=== PATIENT | female | born 1985 | race African-American/Black ===

== ENCOUNTER 2017-04-23 22:52 | Emergency (ER) | payer OTHER ==
[2017-04-23 23:15] VITALS: BP 147/77; PULSE 64; TEMP 98.2; BMI 49.9
--- NOTE | 2017-04-24 00:18 | PDOC ---
History of Present Illness - General History Source: Patient, Old Records Exam Limitations: No Limitations - History of Present Illness Initial Comments: 04/24/17 01:19 The patient is a 32 year old female who presents requesting STD testing after having intercourse with a new partner and the condom broke. Patient denies any respiratory symptoms. <Brad Cronin - Last Filed: 04/24/17 01:18> <Norma Chance - Last Filed: 04/27/17 05:31> - General Chief Complaint: Respiratory Stated Complaint: FATIGUE Time Seen by Provider: 04/24/17 00:18 Past History <Brad Cronin - Last Filed: 04/24/17 01:18> - Past Medical History Diabetes: No - Surgical History Abdominal Surgery: Yes - Suicide/Smoking/Psychosocial Hx Smoking Status: No Smoking History: Never smoked Number of Cigarettes Smoked Daily: 0 Hx Alcohol Use: No Drug/Substance Use Hx: No Substance Use Type: None <Norma Cahnce - Last Filed: 04/27/17 05:31> - Past Medical History Allergies/Adverse Reactions: Allergies Allergy/AdvReac Type Severity Reaction Status Date / Time codeine Allergy Verified 04/23/17 23:15 ibuprofen Allergy Verified 04/23/17 23:15 Home Medications: Ambulatory Orders Ondansetron [Zofran Odt -] 4 mg SL TID #9 od.tablet 07/01/15 Pantoprazole Sodium [Protonix] 40 mg PO ONCE #14 tablet. 07/01/15 Ranitidine [Zantac -] 150 mg PO DAILY #14 tablet 07/01/15 Emtricitabine/Tenofovir [Truvada] 1 tab PO DAILY #30 tablet 04/24/17 Raltegravir [Isentress -] 400 mg PO BID #60 tab 04/24/17 Review of Systems - Review of Systems Able to Perform ROS?: Yes Comments:: 04/24/17 01:19 GENERAL/CONSTITUTIONAL: No fever or chills. No weakness. HEAD, EYES, EARS, NOSE AND THROAT: No change in vision. No ear pain or discharge. No sore throat. GASTROINTESTINAL: No nausea, vomiting, diarrhea or constipation. GENITOURINARY: No dysuria, frequency, or change in urination. CARDIOVASCULAR: No chest pain or shortness of breath. RESPIRATORY: No cough, wheezing, or hemoptysis. MUSCULOSKELETAL: No joint or muscle swelling or pain. No neck or back pain. SKIN: No rash NEUROLOGIC: No headache, vertigo, loss of consciousness, or change in strength/ sensation. ENDOCRINE: No increased thirst. No abnormal weight change. HEMATOLOGIC/LYMPHATIC: No anemia, easy bleeding, or history of blood clots. ALLERGIC/IMMUNOLOGIC: No hives or skin allergy. <Brad Cronin - Last Filed: 04/24/17 01:18> *Physical Exam - Vital Signs Last Vital Signs Temp Pulse Resp BP Pulse Ox 98.2 F 64 18 147/77 99 04/23/17 23:12 04/23/17 23:12 04/23/17 23:12 04/23/17 23:12 04/23/17 23:12 - Physical Exam Comments: 04/24/17 01:19 GENERAL: Awake, alert, and fully oriented, in no acute distress HEAD: No signs of trauma EYES: PERRLA, EOMI, sclera anicteric, conjunctiva clear ENT: Auricles normal inspection, hearing grossly normal, nares patent, oropharynx clear without exudates. Moist mucosa NECK: Normal ROM, supple, no lymphadenopathy, JVD, or masses LUNGS: Breath sounds equal, clear to auscultation bilaterally. No wheezes, and no crackles HEART: Regular rate and rhythm, normal S1 and S2, no murmurs, rubs or gallops ABDOMEN: Soft, nontender, normoactive bowel sounds. No guarding, no rebound. No masses EXTREMITIES: Normal range of motion, no edema. No clubbing or cyanosis. No cords, erythema, or tenderness NEUROLOGICAL: Cranial nerves II through XII grossly intact. Normal speech, normal gait SKIN: Warm, Dry, normal turgor, no rashes or lesions noted. <Brad Cronin - Last Filed: 04/24/17 01:18> - Vital Signs Last Vital Signs Temp Pulse Resp BP Pulse Ox 98.2 F 64 18 147/77 99 04/23/17 23:12 04/23/17 23:12 04/23/17 23:12 04/23/17 23:12 04/23/17 23:12 <Norma Chance - Last Filed: 04/27/17 05:31> ED Treatment Course - ADDITIONAL ORDERS Additional order review: Laboratory Results 04/24/17 00:25 Urine HCG, Qual Negative <Brad Cronin - Last Filed: 04/24/17 01:18> Medical Decision Making - Medical Decision Making 04/24/17 01:20 Urinary negative Patient started on PEP in ED Stable for discharge <Brad Cronin - Last Filed: 04/24/17 01:18> - Medical Decision Making Clarification to scribe chart- Patient's complaint on initial presentation was fatigue and respiratory complaint, however, she states she has no respiratory complaints. She presented for PEP, but was not comfortable stating this in triage. <Norma Chance - Last Filed: 04/27/17 05:31> *DC/Admit/Observation/Transfer - Attestations Scribe Attestion: 04/24/17 01:21 Documentation prepared by Brad Cronin, acting as medical apparatus model maker for Norma Chance MD. <Brad Cronin - Last Filed: 04/24/17 01:18> - Discharge Dispostion Admit: No <Norma Chance - Last Filed: 04/27/17 05:31> Diagnosis at time of Disposition: Encounter for screening examination for sexually transmitted disease - Discharge Dispostion Disposition: HOME Condition at time of disposition: Stable - Prescriptions Prescriptions: Raltegravir [Isentress -] 400 mg PO BID #60 tab Emtricitabine/Tenofovir [Truvada] 1 tab PO DAILY #30 tablet - Referrals Referrals: Suzanne Ho [Primary Care Provider] - - Patient Instructions Printed Discharge Instructions: DI for Accidental Exposure to Body Fluids
[2017-04-24] MEDS ORDERED: AZITHROMYCIN 1 GM PACKET PO ONE (00:33)
[2017-04-24] MEDS ORDERED: LEVONORGESTREL 1.5 MG TABLET (PLAN B ONE-STEP) PO ×2 (00:54→01:41)
[2017-04-24] MEDS ORDERED: RALTEGRAVIR POTASSIUM 400 MG TAB PO ONE (00:57)
[2017-04-24] MEDS ORDERED: EMTRICITABINE 200MG/TENOFOVIR 300MG PO ONE (00:57)
[2017-04-24] MEDS ORDERED: AZITHROMYCIN 250 MG TABLET ONE (01:41)
[2017-04-24] MEDS ORDERED: LIDOCAINE HCL/PF 1% SDV 5ML VIAL ONE (01:42)
[2017-04-24 02:40] LABS: HIV 1 & 2 AB NEGATIVE; HIV 1 AGp24 NEGATIVE
== END 2017-04-24 02:16 | disposition home or self-care (01) ==
LOC: JER 22:52
DX: Z11.3 Encounter for screening for infections with a predominantly sexual mode of transmission (principal)
CPT/HCPCS: 36415; 84703; 87389; 87491; 87591; 99281-25

== ENCOUNTER 2017-05-24 13:46 | Emergency (ER) | payer OTHER ==
[2017-05-24 13:57] VITALS: BP 119/73; PULSE 70; TEMP 98.3; BMI 55.3
--- NOTE | 2017-05-24 14:15 | PDOC ---
History of Present Illness - General Chief Complaint: Pain Stated Complaint: STD TESTING/R/O UTI Time Seen by Provider: 05/24/17 14:15 History Source: Patient Exam Limitations: No Limitations - History of Present Illness Initial Comments: 05/24/17 14:25 Patient is a 32-year-old female with past medical history of unprotected sexual encounters, who presents to the emergency department today requesting STD testing. Patient states that she had a one night stand approximate 4 nights ago when the condom broke. She is concerned she might have an STD. She is requesting GC chlamydia testing at this time, however she refuses HIV testing as she does not want to wait for the results. Denies fevers, chills, nausea, vomiting, diarrhea, discharge, itching, lesions, weight loss, fatigue. Past History - Travel Traveled outside of the country in the last 30 days: No Close contact w/someone who was outside of country & ill: No - Past Medical History Allergies/Adverse Reactions: Allergies Allergy/AdvReac Type Severity Reaction Status Date / Time codeine Allergy Verified 05/24/17 13:56 ibuprofen Allergy Verified 05/24/17 13:56 Home Medications: Ambulatory Orders Ondansetron [Zofran Odt -] 4 mg SL TID #9 od.tablet 07/01/15 Pantoprazole Sodium [Protonix] 40 mg PO ONCE #14 tablet.dr 07/01/15 Ranitidine [Zantac -] 150 mg PO DAILY #14 tablet 07/01/15 Emtricitabine/Tenofovir [Truvada] 1 tab PO DAILY #30 tablet 04/24/17 Raltegravir [Isentress -] 400 mg PO BID #60 tab 04/24/17 Diabetes: No Other medical history: obesity - Surgical History Abdominal Surgery: Yes - Suicide/Smoking/Psychosocial Hx Smoking Status: No Smoking History: Never smoked Number of Cigarettes Smoked Daily: 0 Information on smoking cessation initiated: No Hx Alcohol Use: No Drug/Substance Use Hx: No Substance Use Type: None Review of Systems - Review of Systems Able to Perform ROS?: Yes Comments:: 05/24/17 14:30 CONSTITUTIONAL: Absent: fever, chills, diaphoresis, generalized weakness, malaise, loss of appetite HEENT: Absent: rhinorrhea, nasal congestion, throat pain, throat swelling, difficulty swallowing, mouth swelling, ear pain, eye pain, visual Changes CARDIOVASCULAR: Absent: chest pain, loss of consciousness, palpitations, irregular heart rate, peripheral edema RESPIRATORY: Absent: cough, shortness of breath, dyspnea with exertion, orthopnea, wheezing, stridor, hemoptysis GASTROINTESTINAL: Absent: abdominal pain, abdominal distension, nausea, vomiting, diarrhea, constipation, melena, hematochezia GENITOURINARY: Absent: dysuria, frequency, urgency, hesitancy, hematuria, flank pain, genital pain MUSCULOSKELETAL: Absent: myalgia, arthralgia, joint swelling SKIN: Absent: rash, itching, pallor HEMATOLOGIC/IMMUNOLOGIC: Absent: easy bleeding, easy bruising, lymphadenopathy, frequent infections ENDOCRINE: Absent: unexplained weight gain, unexplained weight loss, heat intolerance, cold intolerance NEUROLOGIC: Absent: headache, focal weakness or paresthesias, dizziness, unsteady gait, seizure, mental status changes, bladder or bowel incontinence PSYCHIATRIC: Absent: anxiety, depression, suicidal or homicidal ideation, hallucinations. Is the patient limited Armenian proficient: No *Physical Exam - Vital Signs Last Vital Signs Temp Pulse Resp BP Pulse Ox 98.3 F 70 18 119/73 100 05/24/17 13:53 05/24/17 13:53 05/24/17 13:53 05/24/17 13:53 05/24/17 13:53 - Physical Exam Comments: 05/24/17 14:40 GENERAL: Well developed, well nourished. Awake and alert. No acute distress. NECK: Supple. Full ROM. No JVD. Carotid pulses 2+ and symmetric, without bruits. No thyromegaly. No lymphadenopathy. CARDIOVASCULAR: Regular rate and rhythm. No murmurs, rubs, or gallops. Distal pulses are 2+ and symmetric. PULMONARY: No evidence of respiratory distress. Lungs clear to auscultation bilaterally. No wheezing, rales or rhonchi. ABDOMINAL: Soft. Non-tender. Non-distended. No rebound or guarding. No organomegaly. Normoactive bowel sounds. SKIN: Warm and dry. Normal capillary refill. No rashes. No jaundice. NEUROLOGICAL: Alert, awake, appropriate. Cranial nerves 2-12 intact. No deficits to light touch and temperature in face, upper extremities and lower extremities. No motor deficits in the in face, upper extremities and lower extremities. Normoreflexic in the upper and lower extremities. Normal speech. Toes are down- going bilaterally. Gait is normal without ataxia. : Exam deferred as pt did not want pelvic exam because it is "uncomfortable". PSYCHIATRIC: Cooperative. Good eye contact. Appropriate mood and affect. Medical Decision Making - Medical Decision Making 05/24/17 14:45 Patient is a 32-year-old female with past medical history of risky sexual encounters, who presents to the emergency department looking for STD testing after her condom broke with a new partner 4 days ago. Patient is requesting antibiotics at this time. She is also concerned about HIV and curious that prophylaxis. Explained the side effects of prophylaxis including weakness, dizziness, nausea and vomiting. Patient decides that she does not want take the medication. Also reviewed the patient's chart. She was in our emergency department approximately 1 month ago where she had HIV testing and it was negative at the time. She is instructed to follow-up in 2 months with the [facility], or [facility] to have repeat HIV testing. 1.UA, UC, U , GC/Chlamydia amplification. 2. Rocephin and azithromycin. 05/24/17 15:39 UA and urine are negative at this time. We'll discharge home. *DC/Admit/Observation/Transfer Diagnosis at time of Disposition: Encounter for screening examination for sexually transmitted disease - Discharge Dispostion Disposition: HOME Condition at time of disposition: Good Admit: No - Referrals Referrals: Ginette Ball MD [Staff Physician] - - Patient Instructions Printed Discharge Instructions: Facts About Sexually Transmitted Infections Additional Instructions: You were treated for suspected gonorrhea and chlamydia today. You did not want HIV testing today. Your HIV testing done on 04/24/17 was negative. 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 Use condoms when having intercourse. Your urine as negative for infection and you are not currently . Return to the ED if you have foul smelling discharge, itching, pain with intercourse, weakness, fatigue, weight loss, or any changes in your symptoms
[2017-05-24 14:36] LABS: URINE APPEARANCE SLCLOUDY; URINE BILIRUBIN NEGATIVE (NEGATIVE); URINE BLOOD NEGATIVE (NEGATIVE); URINE COLOR YELLOW; URINE GLUCOSE (UA) NEGATIVE (NEGATIVE); URINE KETONE TRACE (NEGATIVE); URINE NITRITE NEGATIVE (NEGATIVE); URINE PROTEIN NEGATIVE (NEGATIVE)
[2017-05-24] MEDS ORDERED: AZITHROMYCIN 250 MG TABLET PO ONE (14:50)
[2017-05-24] MEDS ORDERED: AZITHROMYCIN 250 MG TABLET ONE (14:57)
[2017-05-24 17:34] LABS: URINE LEUK ESTERASE Negative (NEGATIVE)
== END 2017-05-24 15:23 | disposition home or self-care (01) ==
LOC: JERFT 13:46
DX: Z11.3 Encounter for screening for infections with a predominantly sexual mode of transmission (principal); E66.9 Obesity, unspecified; Z68.43 Body mass index [BMI] 50.0-59.9, adult
CPT/HCPCS: 36415; 81003; 84703; 87086; 87491; 87591; 96372; 99281-25

== ENCOUNTER 2017-10-18 09:14 | Emergency (ER) | payer OTHER ==
[2017-10-18 09:20] VITALS: BP 113/63; PULSE 59; TEMP 97.8; BMI 54.1
[2017-10-18] MEDS ORDERED: ACETAMINOPHEN 500 MG TABLET (FP) PO ONE (11:24)
[2017-10-18] MEDS ORDERED: ACETAMINOPHEN 500 MG TABLET (FP) ONE (11:29)
--- NOTE | 2017-10-18 11:30 | PDOC ---
History of Present Illness - General Chief Complaint: Back Pain Stated Complaint: PAIN/ LT HIP, BACK Time Seen by Provider: 10/18/17 11:05 History Source: Patient Exam Limitations: No Limitations - History of Present Illness Initial Comments: 10/18/17 11:27 This is a 32-year-old obese woman without significant past medical history who presents to emergency department with 4 days of fatigue and lower back pain. Patient states the back pain started while at rest and is worse on the left side radiating to the left hip. Patient has not tried taking any OTC medications as she feels she may be . Patient states her last menstrual period was September 09 and reports having regular menses every 28 days. Patient had a negative home test. Patient denies any dysuria, hematuria, incontinence of bladder or bowel, vaginal bleeding or discharge, rectal bleeding , abdominal pain, fevers, chills, nausea or vomiting. Past History - Past Medical History Allergies/Adverse Reactions: Allergies Allergy/AdvReac Type Severity Reaction Status Date / Time codeine Allergy Verified 10/18/17 09:20 ibuprofen Allergy Verified 10/18/17 09:20 Home Medications: Ambulatory Orders Ondansetron [Zofran Odt -] 4 mg SL TID #9 od.tablet 07/01/15 Pantoprazole Sodium [Protonix] 40 mg PO ONCE #14 tablet. 07/01/15 Ranitidine [Zantac -] 150 mg PO DAILY #14 tablet 07/01/15 Emtricitabine/Tenofovir [Truvada] 1 tab PO DAILY #30 tablet 04/24/17 Raltegravir [Isentress -] 400 mg PO BID #60 tab 04/24/17 Methocarbamol [Robaxin -] 750 mg PO Q8H PRN #21 tablet MDD 3 10/18/17 COPD: No Diabetes: No Other medical history: obese - Surgical History Abdominal Surgery: Yes - Suicide/Smoking/Psychosocial Hx Smoking Status: No Smoking History: Never smoked Number of Cigarettes Smoked Daily: 0 Information on smoking cessation initiated: No Hx Alcohol Use: No Drug/Substance Use Hx: No Substance Use Type: None *Physical Exam - Vital Signs Last Vital Signs Temp Pulse Resp BP Pulse Ox 97.8 F 59 L 19 113/63 98 10/18/17 09:18 10/18/17 09:18 10/18/17 09:18 10/18/17 09:18 10/18/17 09:18 - Physical Exam General Appearance: Yes: Appropriately Dressed. No: Apparent Distress HEENT: positive: Normal ENT Inspection Neck: positive: Trachea midline, Supple Respiratory/Chest: positive: Lungs Clear, Normal Breath Sounds. negative: Respiratory Distress, Accessory Muscle Use Cardiovascular: positive: Regular Rhythm, Regular Rate, S1, S2. negative: Edema , Murmur Gastrointestinal/Abdominal: positive: Normal Bowel Sounds, Soft, Other (obese abdomen). negative: Tender Musculoskeletal: positive: Normal Inspection. negative: CVA Tenderness, Decreased Range of Motion, Muscle Spasm, Vertebral Tenderness Extremity: positive: Normal Inspection, Normal Range of Motion Integumentary: positive: Normal Color, Dry, Warm Neurologic: positive: Alert, Normal Response, Motor Strength 5/5 Medical Decision Making - Medical Decision Making 10/18/17 11:30 A/P: 32-year-old woman without medical history with 4 days of fatigue and left lower back pain. No vertebral tenderness palpated. No deformities, step offs or crepitus appreciated upon palpation. No CVA tenderness elicited. No muscle spasms appreciated. Abdomen soft nontender nondistended. Full sensation to medial and lateral lower extremities bilaterally. No footdrop noted. Early versus UTI versus kidney stone Urine testing, urinalysis, Tylenol Reassess 10/18/17 12:40 Patient with improvement in pain after taking Tylenol. Urinalysis is negative urine test is negative. Likely lower back strain from obesity. Diet and lifestyle modifications discussed with patient who understands that losing weight may help prevent back pain in the future. Patient instructed to take Tylenol and robaxin for continued pain with strict return precautions. *DC/Admit/Observation/Transfer Diagnosis at time of Disposition: Lower back pain Qualifiers: Chronicity: acute Back pain laterality: left Sciatica presence: without sciatica Qualified Code(s): M54.5 - Low back pain - Discharge Dispostion Disposition: HOME Condition at time of disposition: Stable Admit: No - Prescriptions Prescriptions: Methocarbamol [Robaxin -] 750 mg PO Q8H PRN #21 tablet MDD 3 PRN Reason: Back Pain - Referrals Referrals: Norma Bills MD [Primary Care Provider] - - Patient Instructions Printed Discharge Instructions: DI for Low Back Pain Additional Instructions: Take Tylenol as needed for pain. Follow manufacturers instructions for appropriate dosage. Try not to walk or bear weight as much as possible for the next 3 days. Warm moist heat applied to your back may help alleviate pain. Return to emergency department for discoloration of the foot, numbness or tingling to the foot, worsening pain, or any other concerns. Thank you very much for choosing us to provide your emergent healthcare needs. - Post Discharge Activity
[2017-10-18 11:40] LABS: URINE APPEARANCE CLEAR; URINE BILIRUBIN NEGATIVE (NEGATIVE); URINE BLOOD NEGATIVE (NEGATIVE); URINE COLOR YELLOW; URINE GLUCOSE (UA) NEGATIVE (NEGATIVE); URINE KETONE NEGATIVE (NEGATIVE); URINE LEUK ESTERASE NEGATIVE (NEGATIVE); URINE NITRITE NEGATIVE (NEGATIVE); URINE PROTEIN NEGATIVE (NEGATIVE); URINE UROBILINOGEN NEGATIVE mg/dL (0.2-1.0)
== END 2017-10-18 12:48 | disposition home or self-care (01) ==
LOC: JERFT 09:14
DX: M54.5 Low back pain (principal); E66.9 Obesity, unspecified; Z68.43 Body mass index [BMI] 50.0-59.9, adult
CPT/HCPCS: 81003; 84703; 99281-25

== ENCOUNTER 2017-10-22 22:13 | Emergency (ER) | payer OTHER ==
[2017-10-22 22:21] VITALS: BP 126/65; PULSE 97; TEMP 98.4; BMI 47.4
[2017-10-22] MEDS ORDERED: ACETAMINOPHEN 500 MG TABLET (FP) PO ONE ×2 (23:45→23:58)
--- NOTE | 2017-10-22 23:46 | PDOC ---
History of Present Illness - General Chief Complaint: Cold Symptoms Stated Complaint: FLU LIKE SYMPTOMS Time Seen by Provider: 10/22/17 23:30 History Source: Patient Exam Limitations: No Limitations - History of Present Illness Initial Comments: 10/22/17 23:48 32-year-old obese woman without significant past medical history presents emergency Department with 2 days of sore throat, dry cough, subjective fevers and rhinorrhea. Patient reports only sick contacts or being in the emergency Department 4 days ago. She denies headaches, dizziness, chest pain, shortness of breath, abdominal pain, nausea, vomiting, diarrhea, dysuria, hematuria. Past History - Past Medical History Allergies/Adverse Reactions: Allergies Allergy/AdvReac Type Severity Reaction Status Date / Time codeine Allergy Verified 10/22/17 22:18 ibuprofen Allergy Verified 10/22/17 22:18 Home Medications: Ambulatory Orders Ginkgo Biloba [place] Extract [Ginkgo] 60 mg PO DAILY 10/22/17 Oseltamivir Phosphate [Tamiflu -] 75 mg PO BID #10 capsule 10/23/17 COPD: No Diabetes: No - Surgical History Abdominal Surgery: Yes - Suicide/Smoking/Psychosocial Hx Smoking Status: No Smoking History: Never smoked Have you smoked in the past 12 months: No Number of Cigarettes Smoked Daily: 0 Information on smoking cessation initiated: No Hx Alcohol Use: No Drug/Substance Use Hx: No Substance Use Type: None Review of Systems - Review of Systems Able to Perform ROS?: Yes Is the patient limited Angolan proficient: No Constitutional: Yes: See HPI HEENTM: Yes: See HPI Respiratory: Yes: See HPI Cardiac (ROS): No: Symptoms Reported ABD/GI: No: Symptoms Reported : No: Symptoms Reported Musculoskeletal: No: Symptoms Reported Integumentary: No: Symptoms Reported Neurological: No: Symptoms reported Endocrine: No: Symptoms Reported Hematologic/Lymphatic: No: Symptoms Reported *Physical Exam - Vital Signs Last Vital Signs Temp Pulse Resp BP Pulse Ox 98.4 F 97 H 16 126/65 100 10/22/17 22:19 10/22/17 22:19 10/22/17 22:19 10/22/17 22:19 10/22/17 22:19 - Physical Exam General Appearance: Yes: Appropriately Dressed. No: Apparent Distress HEENT: positive: TMs Normal, Pharyngeal Erythema, Tonsillar Erythema, Nasal Congestion. negative: Muffled/Hoarse voice, Tonsillar Exudate, Sinus Tenderness Neck: positive: Trachea midline, Supple. negative: Tender Respiratory/Chest: positive: Lungs Clear, Normal Breath Sounds. negative: Respiratory Distress, Accessory Muscle Use Cardiovascular: positive: Regular Rhythm, Regular Rate, S1, S2. negative: Murmur Gastrointestinal/Abdominal: positive: Normal Bowel Sounds, Soft. negative: Tender Musculoskeletal: positive: Normal Inspection. negative: CVA Tenderness Extremity: positive: Normal Inspection Integumentary: positive: Normal Color, Dry, Warm Neurologic: positive: Alert, Normal Response, Motor Strength 5/5 Medical Decision Making - Medical Decision Making 10/22/17 23:50 CC: Sore throat, dry cough, subjective fevers A/P: 32-year-old female with 2 days of flulike symptoms. Pharyngeal and tonsillar erythema present. No exudates noted. Cobblestoning present in posterior oropharynx. TMs within normal limits. No sinus tenderness appreciated. No stridor noted. Lungs clear to auscultation bilaterally Abdomen soft nontender nondistended. Pharyngitis from bacterial or viral origin Rapid strep and influenza testing Tylenol 1 g orally now Reassess 10/23/17 02:19 Rapid strep testing negative. Influenza testing positive for influenza B. Given onset of symptoms less than 72 hours I will treat the patient with Tamiflu 75 mg twice a day for 5 days. I discussed the physical exam findings, ancillary test results and final diagnoses with the patient. I answered all of the patient's questions. The patient was satisfied with the care received and felt comfortable with the discharge plan and treatment plan. The patient will call her doctor within 96 hours to arrange follow-up and will return to the Emergency Department with any new, persistent or worsening symptoms. *DC/Admit/Observation/Transfer Diagnosis at time of Disposition: Influenza B - Discharge Dispostion Disposition: HOME Condition at time of disposition: Stable Admit: No - Prescriptions Prescriptions: Oseltamivir Phosphate [Tamiflu -] 75 mg PO BID #10 capsule - Referrals Referrals: Norma Bills MD [Primary Care Provider] - - Patient Instructions Additional Instructions: Rest, drink lots of fluids: Teas, water, soups, Pedialyte Saltwater gargles Steamy showers/seem to face break up mucus Avoid contact with others until fevers and cough resolved Lots of handwashing and good hygiene Continue [id number] medications for symptomatic relief Tylenol or Motrin for fever and pain Followup with private physician in one to 2 days as needed Return to emergency department for worsened symptoms, fevers, dehydration - Post Discharge Activity Forms/Work/School Notes: Back to Work
[2017-10-22] MEDS ORDERED: ACETAMINOPHEN 325 MG TABLET (FP) ONE (23:58)
[2017-10-23] MEDS ORDERED: DEXAMETHASONE LIQUID 0.5 MG/5 ML 240 ML BULK BOTTLE PO ONE (01:28)
[2017-10-23] MEDS ORDERED: DEXAMETHASONE SOD PHOSPHATE 10 MG/1 ML VIAL ONE (01:39)
== END 2017-10-23 02:24 | disposition home or self-care (01) ==
LOC: JER 22:13
DX: J10.1 Influenza due to other identified influenza virus with other respiratory manifestations (principal)
CPT/HCPCS: 87070; 87430; 87804; 99283-25

== ENCOUNTER 2017-12-06 08:51 | Emergency (ER) | payer OTHER ==
[2017-12-06 08:57] VITALS: PULSE 60; BMI 52.4
--- NOTE | 2017-12-06 09:38 | PDOC ---
History of Present Illness - General Chief Complaint: Vaginal Bleeding Stated Complaint: VAGINAL BLEEDING (6 WKS ) Time Seen by Provider: 12/06/17 09:17 History Source: Patient Exam Limitations: No Limitations - History of Present Illness Initial Comments: This is a 32 year-old female with h/o x2 (currently 6 wks 5 days gestation by LMP and had US 4 days ago showing gestational sac but no heart activity yet, most recent was 10 years ago and was a 7 month gestation d/t preeclampsia) who p/w painless light vaginal spotting onset this morning. She notes urinating normally this morning, but when she wiped she noted a small amount of bright red blood on the toilet paper, and also a few drops of bright red blood in the toilet. She notes nausea and acid reflux more than usual this , but otherwise denies any recent symptoms (no headache, dizziness, lightheadedness, chest pain, SOB, abdominal pain/ cramping, burning/strange colors/strange odors on urination, or other symptoms recently). Past History - Past Medical History Allergies/Adverse Reactions: Allergies Allergy/AdvReac Type Severity Reaction Status Date / Time codeine Allergy Verified 12/06/17 08:52 ibuprofen Allergy Verified 12/06/17 08:52 Home Medications: Ambulatory Orders NK [No Known Home Medication] 12/06/17 COPD: No Diabetes: No - Surgical History Abdominal Surgery: Yes - Suicide/Smoking/Psychosocial Hx Smoking Status: No Smoking History: Never smoked Have you smoked in the past 12 months: No Number of Cigarettes Smoked Daily: 0 Information on smoking cessation initiated: No Hx Alcohol Use: No Drug/Substance Use Hx: No Substance Use Type: None Review of Systems - Review of Systems Able to Perform ROS?: Yes Constitutional: No: Chills, Fever, Unexplained wgt Loss HEENTM: No: Nose Congestion, Throat Pain Respiratory: No: Cough, Shortness of Breath Cardiac (ROS): No: Chest Pain, Palpitations ABD/GI: Yes: Nausea. No: Constipated, Diarrhea : Yes: Other (vaginal spotting). No: Burning, Dysuria Musculoskeletal: No: Back Pain, Neck Pain Integumentary: No: Bruising, Rash Neurological: No: Headache, Numbness, Tingling, Weakness, Dizziness Endocrine: No: Unexplained Weight Gain, Unexplained Weight Loss *Physical Exam - Vital Signs Last Vital Signs Temp Pulse Resp BP Pulse Ox 98.6 F 60 18 125/76 100 12/06/17 08:54 12/06/17 08:54 12/06/17 08:54 12/06/17 08:54 12/06/17 08:54 - Physical Exam General Appearance: Yes: Nourished, Appropriately Dressed, Obese, Other (well appearing and nontoxic female who is pleasant, answering questions appropriately , appears comfortable). No: Apparent Distress HEENT: positive: EOMI, LUCIAN, Normal Voice, Hearing Grossly Normal. negative: Scleral Icterus (R), Scleral Icterus (L), Nasal Congestion Neck: positive: Trachea midline, Supple. negative: Tender, Rigid Respiratory/Chest: positive: Lungs Clear, Normal Breath Sounds. negative: Respiratory Distress, Crackles, Rhonchi, Stridor, Wheezing Cardiovascular: positive: Regular Rhythm, Regular Rate, S1, S2. negative: Edema , JVD, Murmur Gastrointestinal/Abdominal: positive: Normal Bowel Sounds, Soft. negative: Tender, Organomegaly, Pulsatile Mass, Guarding Musculoskeletal: positive: Normal Inspection. negative: Decreased Range of Motion, Vertebral Tenderness Extremity: positive: Normal Capillary Refill, Normal Inspection, Normal Range of Motion. negative: Tender, Cyanosis Integumentary: positive: Normal Color, Dry, Warm. 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 negative: Confused, Disoriented ED Treatment Course - LABORATORY CBC & Chemistry Diagram: 12/06/17 09:45 - RADIOLOGY Radiology Studies Ordered: Category Date Time Status TRANSVAGINAL US PREG [US] Stat Ultrasound 12/06/17 09:19 Ordered Medical Decision Making - Medical Decision Making First trimester female p/w vaginal bleeding and lower abdominal pain at <20 wks gestation. Initial Vital Signs Temp Pulse Resp BP Pulse Ox 98.6 F 60 18 125/76 100 12/06/17 08:54 12/06/17 08:54 12/06/17 08:54 12/06/17 08:54 12/06/17 08:54 Exam: Normal exam, no abdominal ttp, pelvic exam deferred. DDX IBNLT: threatened/inevitable/incomplete/complete/septic , UTI/ hemorrhagic cystitis, ectopic, PID/TOA/cervicitis, endometritis, ruptured ovarian cyst, ovarian torsion, malignancy, menorrhagia, endometriosis, rectal bleed, hematuria, constipation, fibroids, etc. Ordered is CBCD T&S UA UCx hCG Quant transvaginal US. Blood Laboratory Tests 12/06/17 12/06/17 12/06/17 09:42 09:45 09:45 WBC 11.0 H RBC 4.20 Hgb 12.4 Hct 36.2 MCV 86.3 MCH 29.6 MCHC 34.3 RDW 15.2 Plt Count 333 MPV 9.0 Neutrophils % 69.5 Lymphocytes % 19.5 Monocytes % 7.8 Eosinophils % 2.3 Basophils % 0.9 Beta HCG, Quant 25519.2 Urine Color Urine Appearance Urine pH Ur Specific [place] Urine Protein Urine Glucose (UA) Urine Ketones Urine Blood Urine Nitrite Urine Bilirubin Urine Urobilinogen Ur Leukocyte Esterase Urine WBC (Auto) Urine RBC (Auto) Ur Epithelial Cells Urine Bacteria Urine Mucus Blood Type B POSITIVE Antibody Screen Negative 12/06/17 09:45 WBC RBC Hgb Hct MCV MCH MCHC RDW Plt Count MPV Neutrophils % Lymphocytes % Monocytes % Eosinophils % Basophils % Beta HCG, Quant Urine Color Ltyellow Urine Appearance Slcloudy Urine pH 6.0 Ur Specific [place] 1.012 Urine Protein Negative Urine Glucose (UA) Negative Urine Ketones Negative Urine Blood 3+ H Urine Nitrite Negative Urine Bilirubin Negative Urine Urobilinogen Negative Ur Leukocyte Esterase Negative Urine WBC (Auto) 1 Urine RBC (Auto) 20 Ur Epithelial Cells Rare Urine Bacteria Rare Urine Mucus Rare Blood Type Antibody Screen Blood type is: B+ US: Single live IUP at 6 wks 1 day. Reassessment: Repeat abdominal exam is benign. Repeat VS: Dx threatened . The patient does NOT require Rhogam as her T&S today results type B+. Workup is not concerning for emergency-level pathology at this time. The patient is appropriate for discharge home w/ close outpatient f/u. The patient is comfortable with this plan and will follow up with their PCP in 1 -3 days. She will take primarily Tylenol for any pain. She will follow up with their regular doctor or SOCIAL SERVICES MANAGER in the next 1-3 days. Return precautions are discussed and they will come back to the ER if necessary. *DC/Admit/Observation/Transfer Diagnosis at time of Disposition: Threatened , Nausea and vomiting during Ovarian cyst Qualifiers: Laterality: unspecified laterality Qualified Code(s): N83.209 - Unspecified ovarian cyst, unspecified side - Discharge Dispostion Disposition: HOME Condition at time of disposition: Stable Decision to Admit order: No - Referrals Referrals: Norma Bills MD [Primary Care Provider] - Amee Hayward MD [Staff Physician] - - Patient Instructions Printed Discharge Instructions: DI for Threatened Additional Instructions: You were seen in the ER for vaginal bleeding in . We did an exam, laboratory work on your blood and urine, and an ultrasound. The ultrasound showed a live in the uterus in good position, with a size typical of a 6 week 1 day . You have an ovarian cyst as well. This vaginal bleeding in the first trimester can be normal and is called a "threatened miscarriage". After our assessment, we do not think you are having a medical emergency at this time, and you are safe to go home. Please take Tylenol for any mild-moderate pain. Follow up with your risk intern/glove cutter and regular PCP doctor in the next 1-3 days. Call their clinic [facility], tell them you were seen in the ER, and tell them you need an appointment. Please come back to the ER at any time (24 hours a day) for any new or worsening symptoms, like worsening pelvic pain, discharge, high fever, headache, seizure, fainting, anemia, large amount of blood loss, or other symptoms. If you are having severe or life threatening symptoms, or symptoms that make it unsafe to drive or have someone drive you, please call 911. - Post Discharge Activity Forms/Work/School Notes: Back to Work
[2017-12-06 09:53] LABS: URINE APPEARANCE SLCLOUDY; URINE BILIRUBIN NEGATIVE (<2.0 mg/dL); URINE COLOR LTYELLOW; URINE GLUCOSE (UA) NEGATIVE (NEGATIVE); URINE KETONE NEGATIVE (NEGATIVE); URINE LEUK ESTERASE NEGATIVE (NEGATIVE); URINE NITRITE NEGATIVE (NEGATIVE); URINE PROTEIN NEGATIVE (NEGATIVE); URINE UROBILINOGEN NEGATIVE mg/dL (0.2-1.0)
[2017-12-06 09:57] LABS: BASO % 0.9 % (0-2.0); EOS % 2.3 % (0-4.5); HEMATOCRIT 36.2 % (32.4-45.2); HEMOGLOBIN 12.4 GM/dL (10.7-15.3); LYMPH % 19.5 % (8-40); MCH 29.6 pg (25.7-33.7); MCHC 34.3 g/dl (32.0-36.0); MEAN CELL VOLUME 86.3 fl (80-96); MONO % 7.8 % (3.8-10.2); NEUT % 69.5 % (42.8-82.8); PLATELET COUNT 333 K/MM3 (134-434); RDW 15.2 % (11.6-15.6)
--- NOTE | 2017-12-06 09:59 | PDOC ---
Attending Attestation - Resident Resident Name: FaviolaAkiko - ED Attending Attestation I have performed the following: I have examined & evaluated the patient, The case was reviewed & discussed with the resident, I agree w/resident's findings & plan, Exceptions are as noted - HPI HPI: 12/06/17 09:55 32 year old F c/ no pmh ~6 wks p/w vaginal spotting today. Denies bleeding. Denies abdominal pain. Denies dysuria, fevers, chills, nausea, vomiting. Otherwise, no other complaints. - Physicial Exam PE: 12/06/17 09:57 GENERAL: Awake, alert, and fully oriented, in no acute distress. HEAD: No signs of trauma EYES: PERRLA, EOMI, sclera anicteric, conjunctiva clear ENT: Auricles normal inspection, hearing grossly normal, nares patent, NECK: Normal ROM, supple ABDOMEN: Soft, nontender, No guarding, no rebound. No masses EXTREMITIES: Normal range of motion, no edema. No clubbing or cyanosis. No cords, erythema, or tenderness NEUROLOGICAL: Cranial nerves II through XII grossly intact. Normal speech, normal gait SKIN: Warm, Dry, normal turgor, no rashes or lesions noted. - Medical Decision Making 12/06/17 09:58 Vital Signs Temp Pulse Resp BP Pulse Ox 98.6 F 60 18 125/76 100 12/06/17 08:54 12/06/17 08:54 12/06/17 08:54 12/06/17 08:54 12/06/17 08:54 First trimester vaginal spotting, now stopped. R/o ectopic , threatened , cystitis Labs, type and screen (to check RH factor), beta HCG, ua/uc Transvaginal ultrasound 12/06/17 11:06 CBC, BMP 12/06/17 09:45 CMP Beta HCG, Quant 21787.2 mIU/ml 12/06/17 09:45 Urine Test Results Urine Color Ltyellow 12/06/17 09:45 Urine Appearance Slcloudy 12/06/17 09:45 Urine pH 6.0 (5.0-8.0) 12/06/17 09:45 Ur Specific [place] 1.012 (1.001-1.035) 05/08/18 09:45 Urine Protein Negative (NEGATIVE) 12/06/17 09:45 Urine Glucose (UA) Negative (NEGATIVE) 12/06/17 09:45 Urine Ketones Negative (NEGATIVE) 12/06/17 09:45 Urine Blood 3+ (NEGATIVE) H 12/06/17 09:45 Urine Nitrite Negative (NEGATIVE) 12/06/17 09:45 Urine Bilirubin Negative (<2.0 mg/dL) 12/06/17 09:45 Ur Leukocyte Esterase Negative (NEGATIVE) 12/06/17 09:45 Ur Epithelial Cells Rare /HPF (FEW) 12/06/17 09:45 Urine Bacteria Rare /hpf (NONE SEEN) 12/06/17 09:45 Urine Mucus Rare 12/06/17 09:45 Blood type: B positive. 12/06/17 11:59 Ultrasound reviewed. Single live intrauterine 6 weeks and 1 day gestational age. There is also a complex left ovarian cyst.
[2017-12-06 10:43] LABS: EPI CELLS RARE /HPF (FEW); URINE BACTERIA RARE /hpf (NONE SEEN); URINE MUCUS RARE
[2017-12-06 12:01] VITALS: BP 104/61; TEMP 98.7
== END 2017-12-06 12:31 | disposition home or self-care (01) ==
LOC: JER 08:51
DX: O26.891 Other specified pregnancy related conditions, first trimester (principal); O20.0 Threatened abortion; N83.202 Unspecified ovarian cyst, left side; Z3A.01 Less than 8 weeks gestation of pregnancy
CPT/HCPCS: 36415; 76817-TC; 81003; 81015; 84702; 85025; 86850; 86900; 86901; 87086; 99283-25

== ENCOUNTER 2018-01-14 08:41 | Inpatient (IN) | payer OTHER ==
--- NOTE | 2018-01-14 09:30 | PDOC ---
History of Present Illness - General Chief Complaint: Shortness of Breath Stated Complaint: SOB,12WKS Time Seen by Provider: 01/14/18 09:29 History Source: Patient Exam Limitations: No Limitations - History of Present Illness Initial Comments: 01/14/18 10:16 Pt. is a 32 y/o F , currently 12 weeks , who presents to the ED c/o shortness of breath and lightheadedness starting this morning. Pt. states that she was walking to her car when she suddenly felt short of breath and dizzy. Pt. states she had a hard time catching her breath. She states she then got in the car and tried to calm down. She felt better so she drove to the drug store. Pt states that after driving a brief distance, she got out of the car and walked around feeling the same way. She decided to present to the ED for evaluation of her shortness of breath. She states that this has never happened to her before. Denies fevers chills, n/v/d, abdominal pain, vaginal bleeding. Triage vitals are unremarkable at this time. Past History - Travel Traveled outside of the country in the last 30 days: No Close contact w/someone who was outside of country & ill: No - Past Medical History Allergies/Adverse Reactions: Allergies Allergy/AdvReac Type Severity Reaction Status Date / Time codeine Allergy Verified 01/14/18 08:50 ibuprofen Allergy Verified 01/14/18 08:50 Home Medications: Ambulatory Orders NK [No Known Home Medication] 12/06/17 COPD: No Diabetes: No - Surgical History Abdominal Surgery: Yes - Suicide/Smoking/Psychosocial Hx Smoking Status: No Smoking History: Never smoked Have you smoked in the past 12 months: No Number of Cigarettes Smoked Daily: 0 Hx Alcohol Use: No Drug/Substance Use Hx: No Substance Use Type: None Review of Systems - Review of Systems Able to Perform ROS?: Yes Comments:: 01/14/18 09:30 CONSTITUTIONAL: Absent: fever, chills, diaphoresis, generalized weakness, malaise, loss of appetite HEENT: Absent: rhinorrhea, nasal congestion, throat pain, throat swelling, difficulty swallowing, mouth swelling, ear pain, eye pain, visual Changes CARDIOVASCULAR: Present: lightheadedness Absent: chest pain, loss of consciousness, palpitations , irregular heart rate, peripheral edema RESPIRATORY: Present: shortness of breath, dyspnea on exertion Absent: cough, orthopnea, wheezing, stridor, hemoptysis GASTROINTESTINAL: Absent: abdominal pain, abdominal distension, nausea, vomiting, diarrhea, constipation, melena, hematochezia GENITOURINARY: Absent: dysuria, frequency, urgency, hesitancy, hematuria, flank pain, genital pain MUSCULOSKELETAL: Absent: myalgia, arthralgia, joint swelling SKIN: Absent: rash, itching, pallor HEMATOLOGIC/IMMUNOLOGIC: Absent: easy bleeding, easy bruising, lymphadenopathy, frequent infections ENDOCRINE: Absent: unexplained weight gain, unexplained weight loss, heat intolerance, cold intolerance NEUROLOGIC: Absent: headache, focal weakness or paresthesias, dizziness, unsteady gait, seizure, mental status changes, bladder or bowel incontinence PSYCHIATRIC: Absent: anxiety, depression, suicidal or homicidal ideation, hallucinations. Is the patient limited Armenian proficient: No *Physical Exam - Vital Signs Last Vital Signs Temp Pulse Resp BP Pulse Ox 97.6 F 57 L 18 116/83 99 01/14/18 08:48 01/14/18 08:48 01/14/18 08:48 01/14/18 08:48 01/14/18 08:48 - Physical Exam Comments: 01/14/18 09:30 GENERAL: Well developed, well nourished. Awake and alert. No acute distress. HEENT: Normocephalic, atraumatic. PERRLA, EOMI. No conjunctival pallor. Sclera are non- icteric. Moist mucous membranes. Oropharynx is clear. NECK: Supple. Full ROM. No JVD. Carotid pulses 2+ and symmetric, without bruits. No thyromegaly. No lymphadenopathy. CARDIOVASCULAR: Regular rate and rhythm. No murmurs, rubs, or gallops. Distal pulses are 2+ and symmetric. PULMONARY: No evidence of respiratory distress. Lungs clear to auscultation bilaterally. No wheezing, rales or rhonchi. ABDOMINAL: Soft. Non-tender. Non-distended. No rebound or guarding. No organomegaly. Normoactive bowel sounds. MUSCULOSKELETAL Normal range of motion at all joints. No bony deformities or tenderness. No CVA tenderness. EXTREMITIES: No cyanosis. No clubbing. No edema. No calf tenderness. SKIN: Warm and dry. Normal capillary refill. No rashes. No jaundice. NEUROLOGICAL: Alert, awake, appropriate. Cranial nerves 2-12 intact. No deficits to light touch and temperature in face, upper extremities and lower extremities. No motor deficits in the in face, upper extremities and lower extremities. Normoreflexic in the upper and lower extremities. Normal speech. Toes are down- going bilaterally. Gait is normal without ataxia. PSYCHIATRIC: Cooperative. Good eye contact. Appropriate mood and affect. ED Treatment Course - LABORATORY CBC & Chemistry Diagram: 01/14/18 09:52 01/14/18 09:52 Medical Decision Making - Critical Care Time Total Critical Care Time (minutes): 30 Critical Care Statement: The care of this patient involved high complexity decision making to prevent further life threatening deterioration of the patient 's condition and/or to evaluate & treat vital organ system(s) failure or risk of failure. - Medical Decision Making 01/14/18 10:27 Pt. is a 32 y/o F , currently 12 weeks , who presents to the ED c/o sudden onset shortness of breath and lightheadedness starting this morning. Exam with clear lung sounds b/l, RRR, Vital signs unremarkable. No calf pain on exam. Given pt c/o will r/o PE, ACS, infectious cause, metabolic derangement. Pt. states she does not want an IV at this time. Will obtain EKG, and CXR. Will re-evaluate. PCP: Dr. Bills 01/14/18 11:12 Troponin is elevated at this time at 0.09. Will need repeat cardiac profile in 4 hours. Concern for PE vs ACS vs cardiomyopathy in . Pt. will need admission when work up is complete. EKG: Sinus arrhythmia rate 55. Normal intervals/axis. No acute ST-T wave changes. 01/14/18 12:04 D-Dimer is elevated at 17,000. High suspicion and concern for PE at this time given elevated trop and D-dimer. Explain all lab work to pt and the need for CTA at this time to r/o PE. Pt states that she would like to wait until second second cardiac profile results before having a CTA. Explained to pt the necessity for a CTA and all of the risks and benefits. Pt. is concerned for side effects to the baby. Ensured pt that risks to the baby are minimal. Pt states she would like time to think about the CTA. 01/14/18 13:45 Pt. decides that she consents to the CTA after reading literature on PE and CTA in . 01/14/18 14:58 Repeat troponin now elevated to 0.34. Repeat EKG ordred at this time. Pt. still pending CTA at this time. Given lab work and cardiac issues, will admit at this time. Case discussed with Dr. Bills who agrees to admission to [facility] at this time. Consult with Dr. Saravia cardiology. Pelvic ultrasound ordered to evaluate the baby. 01/14/18 18:[address]. Vitals stable. Pt to be transferred to floor. 01/14/18 19:03 Call recieved from imaging electronics engineering technologist. Pt with multiple PE's throughout b/l distal lung zamora. Dr. Bills made aware. Pt. to go to the ICU. *DC/Admit/Observation/Transfer Diagnosis at time of Disposition: Elevated troponin I level, Shortness of breath Qualifiers: Weeks of gestation: 12 weeks Qualified Code(s): Z3A.12 - 12 weeks gestation of - Discharge Dispostion Condition at time of disposition: Guarded Decision to Admit order: Yes - Referrals - Patient Instructions - Post Discharge Activity
[2018-01-14 10:07] LABS: URINE APPEARANCE CLOUDY; URINE BILIRUBIN NEGATIVE (<2.0 mg/dL); URINE COLOR YELLOW; URINE GLUCOSE (UA) NEGATIVE (NEGATIVE); URINE KETONE NEGATIVE (NEGATIVE); URINE LEUK ESTERASE NEGATIVE (NEGATIVE); URINE NITRITE NEGATIVE (NEGATIVE); URINE PROTEIN NEGATIVE (NEGATIVE); URINE UROBILINOGEN NEGATIVE mg/dL (0.2-1.0)
[2018-01-14 10:13] LABS: BASO % 0.6 % (0-2.0); EOS % 1.5 % (0-4.5); HEMATOCRIT 36.9 % (32.4-45.2); HEMOGLOBIN 12.4 GM/dL (10.7-15.3); LYMPH % 13.1 % (8-40); MCH 29.3 pg (25.7-33.7); MCHC 33.7 g/dl (32.0-36.0); MEAN CELL VOLUME 86.9 fl (80-96); MEAN PLT VOLUME 8.6 fl (7.5-11.1); MONO % 5.4 % (3.8-10.2); NEUT % 79.4 % (42.8-82.8); PLATELET COUNT 267 K/MM3 (134-434); RBC 4.25 M/mm3 (3.60-5.2); RDW 15.6 % (11.6-15.6); WHITE BLOOD COUNT 12.8 K/mm3 (4.0-10.0)
[2018-01-14 10:55] LABS: ALBUMIN 3.1 g/dl (3.4-5.0); ANION GAP 7 (8-16); BILIRUBIN,TOTAL 0.2 mg/dL (0.2-1.0); CALCIUM 9.2 mg/dL (8.5-10.1); CHLORIDE 103 mmol/L (98-107); CO2 24 mmol/L (21-32); CREATININE 0.5 mg/dL (0.55-1.02); GLUCOSE,RANDOM 76 mg/dL (74-106); SGPT/ALT 24 U/L (12-78); SODIUM 134 mmol/L (136-145)
[2018-01-14 10:59] LABS: SGOT/AST 18 U/L (15-37)
[2018-01-14 11:00] LABS: ALK PHOS 86 U/L (45-117); TOT PROT 7.9 g/dl (6.4-8.2)
[2018-01-14 11:06] LABS: BLOOD UREA NITROGEN 6 mg/dL (7-18)
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
--- NOTE | 2018-01-14 17:45 | EKG ---
Test Reason : Blood Pressure : / mmHG Vent. Rate : 066 BPM Atrial Rate : 066 BPM P-R Int : 132 ms QRS Dur : 084 ms QT Int : 392 ms P-R-T Axes : 048 045 024 degrees QTc Int : 410 ms NORMAL SINUS RHYTHM WITH SINUS ARRHYTHMIA POSSIBLE LEFT ATRIAL ENLARGEMENT BORDERLINE ECG NO PREVIOUS ECGS AVAILABLE Confirmed by YARELI PIMENTEL, JOSE ([id number]) on 01/14/2018 5:44:47 PM Referred By: Confirmed By:JOSE DOWNS MD
--- NOTE | 2018-01-14 20:16 | CONSULT ---
Consult Consult Specialty:: pulm critical care Referred by:: dr. yoly de la rosa Reason for Consultation:: PE - History of Present Illness Chief Complaint: SOB History of Present Illness: This is a 32 yo woman who is [id number] weeks with PMHx GERD who presented to [facility] with new SOB. As per pt, she was in her [facility] this morning, but experienced an episode of SOB after a 6-minute walk to her car. She described herself as feeling faint, anxious and very short of breath and had to take a few minutes to rest and calm herself down as symptoms improved slightly before driving to the store. She experienced another similar episode when she was walking back from the store which is what prompted her to come to [facility] ED for evaluation. She denies BOURGEOIS, weakness, CP, palpitations, asymmetrical LE swelling or pain. She denies recent sick contacts, fever, chills. She denies any pelvic or abdominal cramping or unusual bleeding. LMP 10/21 Of note, Pt had pre-ecclampsia during her first which was also a premature , but carried her other two babies to full-term via delivery and are healthy. In the ED, pt VS: T 97.6 F, HR 57, RR 18, BP 116/83, o2 sat 99 on RA. Her SOB had subsided while in the ED. Denies CP, palpitations, LE pain/swelling. On exam , lungs clear, no JVD, no murmurs. Labs remarkable for d-dimer 22349, trop 0.09- ->0.38, BNP 59.3-->9.74, WBC 12.8. CXR unremarkable. Chest CTA shows extensive pulmonary emboli within the distal aspects of the right and left pulmonary arteries extending into the lobar arteries. EKG shows S1Q3T3 changes suggestive of rt heart strain and diphasic p-waves suggestive of atrial enlargement. Seen by cardiology consult. Echo ordered. Admitted to ICU for further management of PE and monitoring. Upon arrival to ICU pt is in no acute distress, speaking in full sentences, calm and denies SOB, CP or discomfort at this time. VS Stable: HR 70s, BP 110s/ 60s, O2 sat 100% on RA. On exam lungs b/l CTA, s1, s2, no S3 or S4, no rub, no JVD. Trace symmetrical b/l LE non-pitting edema. 2+ pulses. Discussed Chest CTA findings and treatment plan with pt. Started on Lovenox BID. Mylanta POx1 for indigestion. - History Source History Provided By: Patient, Medical Record Limitations to Obtaining History: No Limitations - Past Medical History PSYCHIC READER: No: Alzheimer's, CVA, Dementia, Migraine, Multiple Sclerosis, Peripheral Neuropathy, Parkinson's, Seizure, Syncope, TIA, Vertigo, Other Cardio/Vascular: No: AFIB, Aneurysm, Aortic Insufficiency, Aortic Stenosis, CAD , CHF, Deep Vein Thrombosis, HTN, Hyperlipdemia, AL, Mitral Insufficiency, Mitral Stenosis, Murmur, Pulmonary Hypertension, Other Pulmonary: No: Asthma, Bronchitis, Cancer, COPD, O2 Dependent, Pneumonia, Previously Intubated, Pulmonary Embolus, Pulmonary Fibrosis, Sleep Apnea, Other Gastrointestinal: Yes: GERD. No: Ascites, Cancer, Constipation, Crohn's Disease , Diverticulitis, Diverticulosis, Esophageal Varices, Gastritis, GI Bleed, Hemorrhoids, Hiatal Hernia, Inflamatory Bowel Disease, Irritable Bowel Disease, Pancreatitis, Peptic Ulcer Disease, Ulcerative Colitis, Other Hepatobiliary: No: Cirrhosis, Cholelithiasis, Cholecystitis, Choledocholithiasis , Hepatitis A, Hepatitis B, Hepatitis C, Other Renal/: No: Renal Failure, Renal Inusuff, BPH, Cancer, Hematuria, Hemodialysis , Neurogenic Bladder, Renal Calculi, UTI, Other Reproductive: Yes: Other (PRE-ECCLAMPSIA WITH FIRST ). No: Ectopic , Endometriosis, Fibroids, PID, Polycystic Ovary Syndrome, Postmenopausal ...LMP: 10/20/17 ...: Yes (12 weeks) ...: 4 (first baby born premature, all healthy) ...Para: 3 Heme/Onc: No: Anemia, B12 Deficiency, Bleeding Disorder, Cancer, Current Chemotherapy, Current Radiation Therapy, Hemochromatosis, Hypercoaguable State, Myeloproliferative Synd, Sickle Cell Disease, Sickle Cell Trait, Thrombocytopenia, Other Infectious Disease: No: AIDS, C-Diff, Herpes Zoster, HIV, MRSA, STD's, Tuberculosis, VREF, Other Psych: No: Addictions, Anxiety, Bipolar, Depression, Panic, Psychosis, Schizophrenia, Other Musculoskeletal: No: Bursitis, Chronic low back pain, Hemiparesis, Hemiplegia, Osteoarthritis, Paraplegia, Other Rheumatology: No: Fibromyalgia, Gout, Lupus, Rheumatoid Arthritis, Sarcoidosis, Vasculitis, Other ENT: No: Allergic Rhinitis, Sinusitis, Other Endocrine: No: Pisgah's Disease, Seema's Disease, Diabetes Insipidus, Diabetes Mellitus, Hyperparathyroidism, Hyperthyroidism, Hypothyroidism, Osteopenia, SIADH, Other Dermatology: No: Basal Cell, Cellulitis, Eczema, Melanoma, Psoriasis, Squamous Cell, Other - Past Surgical History Past Surgical History: Yes: (x3) - Alcohol/Substance Use Hx Alcohol Use: No History of Substance Use: reports: None - Smoking History Smoking history: Never smoked Have you smoked in the past 12 months: No Aproximately how many cigarettes per day: 0 - Social History Usual Living Arrangement: With Spouse ADL: Independent Place of : [facility] History of Recent Travel: No Home Medications - Allergies Allergies/Adverse Reactions: Allergies Allergy/AdvReac Type Severity Reaction Status Date / Time codeine Allergy Verified 01/14/18 08:50 ibuprofen Allergy Verified 01/14/18 08:50 - Home Medications Home Medications: Ambulatory Orders NK [No Known Home Medication] 12/06/17 Family Disease History - Family Disease History Family History: Unremarkable Review of Systems - Review of Systems Constitutional: denies: No Symptoms, Chills, Diaphoresis, Fever, Lethargy, Loss of Appetite, Malaise, Night Sweats, Unintentional Wgt. Loss, Weakness, Other Eyes: denies: No Symptoms, Blind Spots, Blurred Vision, Double Vision, Eye Pain , Floaters, Photophobia, Recent Change in Vision, Other HENT: denies: No Symptoms, Difficult Swallowing, Ear Discharge, Ear Pain, Epistaxis, Gingival Bleeding, Hearing Loss, Mouth Swelling, Nasal Congestion, Ocular Prosthesis, Throat Pain, Toothache, Ringing in Ears, Other Neck: denies: No Symptoms, Decreased ROM, Lumps, Pain on Movement, Stiffness, Swollen Glands, Tenderness, Other Cardiovascular: denies: No Symptoms, Chest Pain, Edema, Palpitations, Shortness of Breath, Other Respiratory: reports: SOB, SOB on Exertion. denies: Cough, Hemoptysis, Wheezing Gastrointestinal: reports: Other (indigestion) Genitourinary: reports: No Symptoms Breasts: reports: No Symptoms Reported Musculoskeletal: reports: No Symptoms Integumentary: reports: No Symptoms Neurological: reports: No Symptoms Endocrine: reports: No Symptoms Hematology/Lymphatic: reports: No Symptoms Psychiatric: reports: No Symptoms Pain Intensity: 0 Physical Exam Vital Signs: Vital Signs Temperature 97.6 F 01/14/18 08:48 Pulse Rate 57 L 01/14/18 08:48 Respiratory Rate 18 01/14/18 08:48 Blood Pressure 116/83 01/14/18 08:48 O2 Sat by Pulse Oximetry (%) 99 01/14/18 08:48 Constitutional: Yes: Well Nourished, No Distress, Calm, Obese Eyes: Yes: WNL, Conjunctiva Clear, EOM Intact, PERRL HENT: Yes: WNL, Atraumatic, Normocephalic. No: Nasal Congestion Neck: Yes: WNL, Supple, Trachea Midline. No: Lymphadenopathy, Tenderness Cardiovascular: Yes: WNL, Regular Rate and Rhythm, S1, S2. No: JVD, Gallop, Murmur, Rub, S3, S4 Respiratory: Yes: WNL, Regular, CTA Bilaterally. No: Accessory Muscle Use, Cough, Rales, Rhonchi, SOB, Stridor, Tachypnea, Wheezes Gastrointestinal: Yes: WNL, Normal Bowel Sounds, Soft, Abdomen, Obese ...Rectal Exam: Yes: WNL Renal/: Yes: WNL Breast(s): Yes: WNL Musculoskeletal: Yes: WNL Extremities: Yes: WNL Edema: Yes Edema: LLE: Trace, RLE: Trace (equal b/l non-pitting trace) Peripheral Pulses WNL: Yes Integumentary: Yes: WNL Neurological: Yes: WNL, Alert, Oriented. No: Lethargy, Loss of Sensation, Pre- Existing Deficit, Seizure, Unsteady Gait, Weakness ...Motor Strength: WNL Psychiatric: Yes: WNL, Alert, Oriented Labs: CBC, BMP 01/14/18 09:52 01/14/18 09:52 Imaging - Results Cat Scan: Report Reviewed (There is extensive pulm emboli within the distal aspects of the right and left pulmonary arteries extending into lobar arteries. Pulm parenchyma is clear.), Image Reviewed EKG: Image Reviewed (NSR; diphasic p-waves suggestive of atrial enlargement; prominent S1Q3T3 suggestive of rt heart strain.) Problem List - Problems (1) GERD (gastroesophageal reflux disease) Code(s): K21.9 - GASTRO-ESOPHAGEAL REFLUX DISEASE WITHOUT ESOPHAGITIS (2) Elevated troponin I level Code(s): R74.8 - ABNORMAL LEVELS OF OTHER SERUM ENZYMES (3) Code(s): Z34.90 - ENCNTR FOR SUPRVSN OF NORMAL , UNSP, UNSP TRIMESTER Qualifiers: Weeks of gestation: 12 weeks Qualified Code(s): Z3A.12 - 12 weeks gestation of (4) Shortness of breath Code(s): R06.02 - SHORTNESS OF BREATH Assessment/Plan This is a 32 yo woman currently 12 weeks who presented to [facility] with new SOB, now found to have pulmonary emboli admitted to ICu for further management. #Pulmonary emboli in the setting of acute resp distress, SOB and RODRIGUEZ w/ chest CTA showing extensive pulm emboli most likely 2/2 +/- sedentary lifestyle. -lovenox 140mg BID (pt's weight is 144kg) -supplemental o2 as needed #elevated troponin most likely 2/2 cardiac demand -trend trop, bmp -repeat EKG #12 week gestation of -monitoring for cramping and vaginal bleeding -OB Ultrasound ordered -consult bottle carrier #GERD -mylanta PRN -pepcid is category B
[2018-01-14 20:33] VITALS: BMI 52.9
[2018-01-14] MEDS ORDERED: ENOXAPARIN NA (PORCINE) 120 MG/0.8 ML DISP.SYRIN SQ SCH (20:54)
[2018-01-14] MEDS ORDERED: ENOXAPARIN NA (PORCINE) 80 MG/0.8 ML DISP.SYRIN SQ ONE (21:37)
[2018-01-14] MEDS ORDERED: ENOXAPARIN NA (PORCINE) 60 MG/0.6 ML DISP.SYRIN SQ ONE (21:37)
[2018-01-14] MEDS: ENOXAPARIN SQ SCH (21:39)
[2018-01-14] MEDS: MAG HYDROX/AL HYDROX/SIMETH 30 ML UNIT-DOSE CUP PO PRN (22:18)
[2018-01-15 06:56] LABS: ALBUMIN 2.6 g/dl (3.4-5.0); ANION GAP 10 (8-16); BLOOD UREA NITROGEN 6 mg/dL (7-18); CALCIUM 8.4 mg/dL (8.5-10.1); CHLORIDE 104 mmol/L (98-107); CO2 24 mmol/L (21-32); GLUCOSE,RANDOM 75 mg/dL (74-106); POTASSIUM 3.7 mmol/L (3.5-5.1); SODIUM 138 mmol/L (136-145)
[2018-01-15 06:59] LABS: ALK PHOS 72 U/L (45-117); BILIRUBIN,TOTAL 0.2 mg/dL (0.2-1.0); CREATININE 0.5 mg/dL (0.55-1.02); INR 1.15 (0.82-1.09); SGOT/AST 14 U/L (15-37); SGPT/ALT 20 U/L (12-78); TOT PROT 6.5 g/dl (6.4-8.2)
[2018-01-15 07:02] LABS: ACTIVATED PTT 30.7 SECONDS (25.2-36.5)
[2018-01-15 07:03] LABS: HEMATOCRIT 33.1 % (32.4-45.2); HEMOGLOBIN 11.2 GM/dL (10.7-15.3); MCH 29.3 pg (25.7-33.7); MCHC 33.8 g/dl (32.0-36.0); MEAN CELL VOLUME 86.5 fl (80-96); MEAN PLT VOLUME 8.9 fl (7.5-11.1); PLATELET COUNT 253 K/MM3 (134-434); RBC 3.82 M/mm3 (3.60-5.2); RDW 15.6 % (11.6-15.6); WHITE BLOOD COUNT 11.3 K/mm3 (4.0-10.0)
[2018-01-15] MEDS ORDERED: ENOXAPARIN NA (PORCINE) 80 MG/0.8 ML DISP.SYRIN SQ ONE ×2 (08:25→21:16)
[2018-01-15] MEDS ORDERED: ENOXAPARIN NA (PORCINE) 60 MG/0.6 ML DISP.SYRIN SQ ONE ×2 (08:25→21:16)
[2018-01-15 08:40] LABS: URINE APPEARANCE SLCLOUDY; URINE BILIRUBIN NEGATIVE (<2.0 mg/dL); URINE COLOR YELLOW; URINE GLUCOSE (UA) NEGATIVE (NEGATIVE); URINE KETONE 1+ (NEGATIVE); URINE LEUK ESTERASE NEGATIVE (NEGATIVE); URINE NITRITE NEGATIVE (NEGATIVE); URINE PROTEIN NEGATIVE (NEGATIVE); URINE UROBILINOGEN NEGATIVE mg/dL (0.2-1.0)
[2018-01-15 08:46] LABS: EPI CELLS MODERATE /HPF (FEW); URINE MUCUS FEW
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
[2018-01-15] MEDS: ENOXAPARIN SQ SCH ×2 (10:12→21:18)
--- NOTE | 2018-01-15 11:36 | PN ---
Progress Note (short form) - Note Progress Note: Pulm/CCM Pt seen and examined in ICU 24Hr: -off o2 -DVT study pending -on lovenox (recommended anticoag for preg) -Factor Xa level ordered for tuesday am -OBGYM consult ordered Vital Signs Temp 98.6 F 01/15/18 09:09 Pulse 54 L 01/15/18 09:09 Resp 16 01/15/18 09:09 BP 117/61 01/15/18 09:09 Pulse Ox 100 01/15/18 09:00 Intake & Output 01/14/18 01/14/18 01/15/18 11:59 23:59 11:59 Intake Total 240 600 Balance 240 600 Weight 143.789 kg 144.242 kg 82.8 kg Intake: Oral 240 600 Other: Voiding Method Toilet Toilet # Unmeasured Voids Void 1 2 Bowel Movement No Height 5 ft 5 in 5 ft 5 in Body Mass Index (BMI) 52.7 52.9 Weight Measurement Method [facility] Current Medications Al Hydroxide/Mg Hydroxide (Mylanta Oral Suspension -) 30 ml PO Q6H PRN PRN Reason: DYSPEPSIA Last Admin: 01/14/18 22:18 Dose: 30 ml Enoxaparin Sodium 60 mg/ (Enoxaparin Sodium 80 mg) 140 mg SQ BID MATTHIAS Last Admin: 01/15/18 10:12 Dose: 140 mg CBCD WBC 11.3 K/mm3 (4.0-10.0) H 01/15/18 06:15 RBC 3.82 M/mm3 (3.60-5.2) 01/15/18 06:15 Hgb 11.2 GM/dL (10.7-15.3) 01/15/18 06:15 Hct 33.1 % (32.4-45.2) 01/15/18 06:15 MCV 86.5 fl (80-96) 01/15/18 06:15 MCHC 33.8 g/dl (32.0-36.0) 01/15/18 06:15 RDW 15.6 % (11.6-15.6) 01/15/18 06:15 Plt Count 253 K/MM3 (134-434) 01/15/18 06:15 MPV 8.9 fl (7.5-11.1) 01/15/18 06:15 CMP Sodium 138 mmol/L (136-145) 01/15/18 06:15 Potassium 3.7 mmol/L (3.5-5.1) 01/15/18 06:15 Chloride 104 mmol/L (98-107) 01/15/18 06:15 Carbon Dioxide 24 mmol/L (21-32) 01/15/18 06:15 Anion Gap 10 (8-16) 01/15/18 06:15 BUN 6 mg/dL (7-18) L 01/15/18 06:15 Creatinine 0.5 mg/dL (0.55-1.02) L 01/15/18 06:15 Creat Clearance w eGFR > 60 (>60) 01/15/18 06:15 Calcium 8.4 mg/dL (8.5-10.1) L 01/15/18 06:15 Total Bilirubin 0.2 mg/dL (0.2-1.0) 01/15/18 06:15 AST 14 U/L (15-37) L 01/15/18 06:15 ALT 20 U/L (12-78) 01/15/18 06:15 Alkaline Phosphatase 72 U/L (45-117) 01/15/18 06:15 Total Protein 6.5 g/dl (6.4-8.2) 01/15/18 06:15 Albumin 2.6 g/dl (3.4-5.0) L 01/15/18 06:15 CTA: reviewed, bilateral PE, no clear evidence of R heart strain 32 yo woman currently 12 weeks who presented to [facility] with new SOB, now found to have pulmonary emboli admitted to ICu for further management. #Pulmonary emboli in the setting of acute resp distress, SOB and RODRIGUEZ w/ chest CTA showing extensive pulm emboli most likely 2/2 +/- sedentary lifestyle. -lovenox 140mg BID (pt's weight is 144kg) -supplemental o2 as needed #elevated troponin most likely 2/2 cardiac demand -trend trop, bmp -repeat EKG #12 week gestation of -monitoring for cramping and vaginal bleeding -OB Ultrasound ordered, done, pending results -job press feeder contacted, related no acute need for OB to see at this gestation, can see primary. #GERD -mylanta PRN -pepcid is category B Julio Husain [facility] [id number]
--- NOTE | 2018-01-15 12:39 | CONSULT ---
Consult Consult Specialty:: Hematology - History of Present Illness History of Present Illness: Pt. is a 32 y/o F , currently 12 weeks , who presents to the ED c/o shortness of breath and lightheadedness starting this morning. Pt. states that she was walking to her car when she suddenly felt short of breath and dizzy. Pt. states she had a hard time catching her breath. She states she then got in the car and tried to calm down. She felt better so she drove to the drug store. Pt states that after driving a brief distance, she got out of the car and walked around feeling the same way. She decided to present to the ED for evaluation of her shortness of breath. She states that this has never happened to her before. Denies fevers chills, n/v/d, abdominal pain, vaginal bleeding. - Past Medical History [employer]: No: Alzheimer's, CVA, Dementia, Migraine, Multiple Sclerosis, Peripheral Neuropathy, Parkinson's, Seizure, Syncope, TIA, Vertigo, Other Cardio/Vascular: No: AFIB, Aneurysm, Aortic Insufficiency, Aortic Stenosis, CAD , CHF, Deep Vein Thrombosis, HTN, Hyperlipdemia, NV, Mitral Insufficiency, Mitral Stenosis, Murmur, Pulmonary Hypertension, Other Pulmonary: No: Asthma, Bronchitis, Cancer, COPD, O2 Dependent, Pneumonia, Previously Intubated, Pulmonary Embolus, Pulmonary Fibrosis, Sleep Apnea, Other Gastrointestinal: Yes: GERD. No: Ascites, Cancer, Constipation, Crohn's Disease , Diverticulitis, Diverticulosis, Esophageal Varices, Gastritis, GI Bleed, Hemorrhoids, Hiatal Hernia, Inflamatory Bowel Disease, Irritable Bowel Disease, Pancreatitis, Peptic Ulcer Disease, Ulcerative Colitis, Other Hepatobiliary: No: Cirrhosis, Cholelithiasis, Cholecystitis, Choledocholithiasis , Hepatitis A, Hepatitis B, Hepatitis C, Other Renal/: No: Renal Failure, Renal Inusuff, BPH, Cancer, Hematuria, Hemodialysis , Neurogenic Bladder, Renal Calculi, UTI, Other ...LMP: 10/20/17 ...: Yes (12 weeks) Infectious Disease: No: AIDS, C-Diff, Herpes Zoster, HIV, MRSA, STD's, Tuberculosis, VREF, Other Psych: No: Addictions, Anxiety, Bipolar, Depression, Panic, Psychosis, Schizophrenia, Other Musculoskeletal: No: Bursitis, Chronic low back pain, Hemiparesis, Hemiplegia, Osteoarthritis, Paraplegia, Other Rheumatology: No: Fibromyalgia, Gout, Lupus, Rheumatoid Arthritis, Sarcoidosis, Vasculitis, Other ENT: No: Allergic Rhinitis, Sinusitis, Other Endocrine: No: Milner's Disease, Seema's Disease, Diabetes Insipidus, Diabetes Mellitus, Hyperparathyroidism, Hyperthyroidism, Hypothyroidism, Osteopenia, SIADH, Other Dermatology: No: Basal Cell, Cellulitis, Eczema, Melanoma, Psoriasis, Squamous Cell, Other - Past Surgical History Past Surgical History: Yes: (x3) - Alcohol/Substance Use Hx Alcohol Use: No History of Substance Use: reports: None - Smoking History Smoking history: Never smoked Have you smoked in the past 12 months: No Aproximately how many cigarettes per day: 0 - Social History Usual Living Arrangement: With Spouse ADL: Independent History of Recent Travel: No Home Medications - Allergies Allergies/Adverse Reactions: Allergies Allergy/AdvReac Type Severity Reaction Status Date / Time codeine Allergy Verified 01/14/18 08:50 ibuprofen Allergy Verified 01/14/18 08:50 - Home Medications Home Medications: Ambulatory Orders NK [No Known Home Medication] 12/06/17 Physical Exam Vital Signs: Vital Signs Temperature 98.6 F 01/15/18 10:00 Pulse Rate 72 01/15/18 11:00 Respiratory Rate 15 01/15/18 11:00 Blood Pressure 115/60 01/15/18 11:00 O2 Sat by Pulse Oximetry (%) 100 01/15/18 09:00 Constitutional: Yes: No Distress, Other (sitting in chair) Eyes: Yes: Conjunctiva Clear HENT: Yes: Atraumatic, Normocephalic Neck: Yes: Supple, Trachea Midline Cardiovascular: Yes: Regular Rate and Rhythm Respiratory: Yes: Regular, CTA Bilaterally Gastrointestinal: Yes: Abdomen, Obese Extremities: Yes: WNL Edema: No Labs: CBC, BMP 01/15/18 06:15 01/15/18 06:15 Imaging - Results Cat Scan: Report Reviewed Assessment/Plan Extensive bilateral PE in a 12weeks patient. Lovenox 1mg/kg bid--- Pt weighs 144kilos NOT 182lbs--spoke to RN to change.-- discussed with pt that the BMI makes her to be on heparin drip. etiology: Multi-factorial. pt refused heparin drip with PTT monitoring OB consult-- d/w --she requests US LE dopplers-- r/o DVT Cardiology consult. Close ICU monitoring. d.w in detail with the pt.
--- NOTE | 2018-01-15 13:54 | HP ---
Admitting History and Physical - Admission History of Present Illness: Pt. is a 32 y/o morbidly obese female w/ PMH singificant for chronic lower back pain and preeclampsia. Pt is 12 weeks . Pt presented to the ER w/ shortness of breath and lightheadedness wc started acutely. Pt. states that she was walking to her car when she suddenly felt short of breath and dizzy. Pt. states she had a hard time catching her breath. She states she then got in the car and tried to calm down. She felt better so she drove to the drug store. Pt states that after driving a brief distance, she got out of the car and walked around feeling the same way. Pt also c/o some chest tightness but denies any palpitations. In the ER pt found to have elevated D-Dimer/troponin and CTA chest was done wc showed b/l pulmonary emboli and pt transferred to the ICU. - Past Medical History Gastrointestinal: Yes: GERD Reproductive: Yes: Other (Preeclampsia) ...LMP: 10/20/17 ...: Yes (12 weeks) ...: 4 (first baby born premature, all healthy) ...Para: 3 Heme/Onc: No: Anemia, B12 Deficiency, Bleeding Disorder, Cancer, Current Chemotherapy, Current Radiation Therapy, Hemochromatosis, Hypercoaguable State, Myeloproliferative Synd, Sickle Cell Disease, Sickle Cell Trait, Thrombocytopenia, Other Infectious Disease: No: AIDS, C-Diff, Herpes Zoster, HIV, MRSA, STD's, Tuberculosis, VREF, Other Psych: No: Addictions, Anxiety, Bipolar, Depression, Panic, Psychosis, Schizophrenia, Other Musculoskeletal: No: Bursitis, Chronic low back pain, Hemiparesis, Hemiplegia, Osteoarthritis, Paraplegia, Other Rheumatology: No: Fibromyalgia, Gout, Lupus, Rheumatoid Arthritis, Sarcoidosis, Vasculitis, Other ENT: No: Allergic Rhinitis, Sinusitis, Other Endocrine: No: Rony's Disease, Dallas's Disease, Diabetes Insipidus, Diabetes Mellitus, Hyperparathyroidism, Hyperthyroidism, Hypothyroidism, Osteopenia, SIADH, Other Dermatology: No: Basal Cell, Cellulitis, Eczema, Melanoma, Psoriasis, Squamous Cell, Other - Past Surgical History Past Surgical History: Yes: (x3) - Smoking History Smoking history: Never smoked Have you smoked in the past 12 months: No Aproximately how many cigarettes per day: 0 - Alcohol/Substance Use Hx Alcohol Use: No History of Substance Use: reports: None - Social History ADL: Independent History of Recent Travel: No Home Medications - Allergies Allergies/Adverse Reactions: Allergies Allergy/AdvReac Type Severity Reaction Status Date / Time codeine Allergy Verified 01/14/18 08:50 ibuprofen Allergy Verified 01/14/18 08:50 - Home Medications Home Medications: Ambulatory Orders NK [No Known Home Medication] 12/06/17 Family Disease History - Family Disease History Family History: Unremarkable Review of Systems - Review of Systems Constitutional: reports: No Symptoms Eyes: reports: No Symptoms HENT: reports: No Symptoms Neck: reports: No Symptoms Cardiovascular: reports: Chest Pain Respiratory: reports: SOB Gastrointestinal: reports: No Symptoms Physical Examination Vital Signs: Vital Signs Temperature 99 F 01/15/18 13:29 Pulse Rate 74 01/15/18 13:29 Respiratory Rate 18 01/15/18 13:29 Blood Pressure 109/49 01/15/18 13:29 O2 Sat by Pulse Oximetry (%) 100 01/15/18 09:00 Constitutional: Yes: Well Nourished, Obese HENT: Yes: WNL Neck: Yes: WNL, Supple Cardiovascular: Yes: WNL, Regular Rate and Rhythm Respiratory: Yes: Diminished Gastrointestinal: Yes: WNL, Normal Bowel Sounds, Soft Musculoskeletal: Yes: WNL Extremities: Yes: WNL Edema: No Neurological: Yes: WNL, Alert, Oriented ...Motor Strength: WNL Labs: CBC, BMP 01/15/18 06:15 01/15/18 06:15 Problem List - Problems (1) Pulmonary emboli Assessment/Plan: Monitor in ICU'Cont lovenox Pulmonary/heme consults Cont lovenox Monitor for bleeding Code(s): I26.99 - OTHER PULMONARY EMBOLISM WITHOUT ACUTE COR PULMONALE (2) Elevated troponin I level Assessment/Plan: Due to demand ischemia Code(s): R74.8 - ABNORMAL LEVELS OF OTHER SERUM ENZYMES (3) Assessment/Plan: HAND FLESHER consult Code(s): Z34.90 - ENCNTR FOR SUPRVSN OF NORMAL , UNSP, UNSP TRIMESTER Qualifiers: Weeks of gestation: 12 weeks Qualified Code(s): Z3A.12 - 12 weeks gestation of
--- NOTE | 2018-01-15 19:38 | EKG ---
Test Reason : Blood Pressure : / mmHG Vent. Rate : 060 BPM Atrial Rate : 060 BPM P-R Int : 134 ms QRS Dur : 082 ms QT Int : 414 ms P-R-T Axes : 047 037 016 degrees QTc Int : 414 ms NORMAL SINUS RHYTHM WITH SINUS ARRHYTHMIA NORMAL ECG WHEN COMPARED WITH ECG OF 14-JAN-2018 10:10, NO SIGNIFICANT CHANGE WAS FOUND Confirmed by YARELI PIMENTEL, JOSE ([id number]) on 01/15/2018 7:38:31 PM Referred By: Xochilt RODRIGUEZ Confirmed By:JOSE DOWNS MD
[2018-01-16 06:16] LABS: BASO % 0.7 % (0-2.0); EOS % 1.4 % (0-4.5); HEMATOCRIT 33.7 % (32.4-45.2); HEMOGLOBIN 11.2 GM/dL (10.7-15.3); LYMPH % 17.4 % (8-40); MCH 28.5 pg (25.7-33.7); MCHC 33.3 g/dl (32.0-36.0); MEAN CELL VOLUME 85.8 fl (80-96); MEAN PLT VOLUME 8.9 fl (7.5-11.1); MONO % 7.3 % (3.8-10.2); NEUT % 73.2 % (42.8-82.8); PLATELET COUNT 261 K/MM3 (134-434); RBC 3.93 M/mm3 (3.60-5.2); RDW 15.2 % (11.6-15.6); WHITE BLOOD COUNT 12.5 K/mm3 (4.0-10.0)
--- NOTE | 2018-01-16 08:59 | PN ---
Progress Note, Physician Chief Complaint: Seen and examined in ICU Alert, no acute distress She denies chest pain, SOB, pleuritic chest pain or dizziness. Her oxygen saturation is 99% on room air at rest Tele: Reviewed. NSR. No significant arrhythmias. electronics maintenance technician at bedside ready to perform echo. History of Present Illness: Patient denies previous clotting history and denies family h/o VTE Heme consult reviewed, recommendations noted. - Current Medication List Current Medications: Active Medications Al Hydroxide/Mg Hydroxide (Mylanta Oral Suspension -) 30 ml PO Q6H PRN PRN Reason: DYSPEPSIA Last Admin: 01/14/18 22:18 Dose: 30 ml Enoxaparin Sodium 60 mg/ (Enoxaparin Sodium 80 mg) 140 mg SQ BID MATTHIAS Last Admin: 01/15/18 21:18 Dose: 140 mg - Objective Vital Signs: Vital Signs Temperature 98.7 F 01/16/18 06:00 Pulse Rate 66 01/16/18 08:00 Respiratory Rate 16 01/16/18 08:00 Blood Pressure 110/68 01/16/18 08:00 O2 Sat by Pulse Oximetry (%) 100 01/15/18 22:00 Constitutional: Yes: No Distress, Calm Eyes: Yes: Conjunctiva Clear, EOM Intact HENT: Yes: Atraumatic, Normocephalic Neck: Yes: Supple, Trachea Midline Cardiovascular: Yes: Regular Rate and Rhythm (normal S1, S2.) Respiratory: Yes: CTA Bilaterally (no rales or wheezing.) Gastrointestinal: Yes: Soft, Abdomen, Obese (non-tender) Edema: No Peripheral Pulses WNL: Yes Neurological: Yes: Alert, Oriented ...Motor Strength: WNL Psychiatric: Yes: WNL Labs: CBC, BMP 01/16/18 05:30 01/15/18 06:15 INR, PTT INR 1.15 (0.82-1.09) H 01/15/18 06:15 Laboratory Tests 01/14/18 01/14/18 01/15/18 09:52 14:45 06:15 WBC Hgb Hct Plt Count Sodium 138 Potassium 3.7 BUN 6 L Creatinine 0.5 L Creatine Kinase 108 100 Troponin I 0.09 H 0.38 H 01/15/18 01/16/18 06:15 05:30 WBC 12.5 H Hgb 11.2 Hct 33.7 Plt Count 261 Sodium Potassium BUN Creatinine Creatine Kinase Troponin I 0.19 H - ....Imaging Ultrasound: Image Reviewed (No DVT; US was performed and appears WNL, report reviewed) EKG: Image Reviewed Assessment/Plan IMP: 1. Bilateral pulmonary emboli, currently asymptomatic and hemodynamically stable 2. 3. Obesity 4. +TnI, in setting of pulmonary emboli REC: 1. ICU monitoring, telemetry 2. Echo this morning to assess RV size and fxn 3. Continue AC as per Heme and Critical Care Team 4. Ob-Balance Screwhead Polisher consult
[2018-01-16] MEDS ORDERED: ENOXAPARIN NA (PORCINE) 80 MG/0.8 ML DISP.SYRIN SQ ONE (10:11)
[2018-01-16] MEDS ORDERED: ENOXAPARIN NA (PORCINE) 60 MG/0.6 ML DISP.SYRIN SQ ONE (10:11)
[2018-01-16] MEDS: ENOXAPARIN SQ SCH (10:49)
--- NOTE | 2018-01-16 11:08 | CONSULT ---
Consult - text type - Consultation Consultation Note: Called regarding 32yo at 12 weeks gestation diagnosed with Pulmonary Emboli. Spoke to several providers on the phone. No acute OB issues as patient currently 12 weeks. Recommend patient be treated as would anyone with pulmonary embolus-she can have lovenox treatment dosing. Recommended u/s to confirm that remains viable. Also advised that pt would need to be followed as a high risk patient, will need to continue the anticoagulation until and that will need to switch to heparin, when nearing delivery, typically at 36 weeks. Can reconsult as needed.
--- NOTE | 2018-01-16 11:53 | PN ---
Teaching Attending Note Name of Resident: Dillon Kaur ATTENDING PHYSICIAN STATEMENT I saw and evaluated the patient. I reviewed the resident's note and discussed the case with the resident. I agree with the resident's findings and plan as documented. SUBJECTIVE: Pt seen and examined in the ICU. States breathing is better. No chest pain or palpitations. Echocardiogram done this AM, preliminary reports mild pulmonary HTN but no evidence of right heart strain. OBJECTIVE: Vital Signs Period Temp Pulse Resp BP Sys/Glasgow Pulse Ox Last 24 Hr 97.8 F-99 F 66-77 15-24 89-130/34-83 100-100 Intake & Output 01/13/18 01/14/18 01/15/18 01/16/18 23:59 23:59 23:59 23:59 Intake Total 240 1400 100 Balance 240 1400 100 Weight 144.242 kg 144.8 kg 144.441 kg Gen: NAD at rest Heart: RRR Lung: decreased breath sounds at the bases Abd: soft, nontender Ext: no edema CBC, BMP 01/16/18 05:30 01/15/18 06:15 Active Medications Al Hydroxide/Mg Hydroxide (Mylanta Oral Suspension -) 30 ml PO Q6H PRN PRN Reason: DYSPEPSIA Last Admin: 01/14/18 22:18 Dose: 30 ml Enoxaparin Sodium 60 mg/ (Enoxaparin Sodium 80 mg) 140 mg SQ BID MATTHIAS Last Admin: 01/16/18 10:49 Dose: 140 mg ASSESSMENT AND PLAN: Acute Pulmonary Emboli +Troponins r/o Right Heart Strain 12 weeks - continue anticoagulation - f/u official echocardiogram read - O2 as needed - can monitor on floor
--- NOTE | 2018-01-16 14:07 | PN ---
Physical Exam: SUBJECTIVE: Patient seen and examined at bed side in ICU denies any chest pain or SOB , echo pending official reading OBJECTIVE: Vital Signs Period Temp Pulse Resp BP Sys/[place]asgow Pulse Ox Last 24 Hr 97.8 F-98.7 F 66-77 15-24 89-130/34-83 100-100 GENERAL: AAOx3 in NAD HEAD: NC/AT EYES: EOMI, Conjunctiva clear, sclera anicteric ENT: moist mucous membrane NECK: Supple, no JVD LUNGS: CTA B/L, no crackles no wheezing no accessory muscle use. HEART: RRR, NSR, normal s1, s2, murmur no M/R/G ABDOMEN: Soft, ND, NT, +BS 4 Q, no CVA Tenderness LOWER EXTREMITIES: no edema, +2DP pulse, NEUROLOGICAL: No focal deficit. Normal speech. gait not observed. PSYCHIATRIC: Cooperative. Good eye contact. Appropriate mood and affect. SKIN: Warm, dry, Laboratory Results - last 24 hr 01/16/18 05:30 WBC 12.5 H RBC 3.93 Hgb 11.2 Hct 33.7 MCV 85.8 MCH 28.5 MCHC 33.3 RDW 15.2 Plt Count 261 MPV 8.9 Absolute Neuts (auto) 9.1 Neutrophils % 73.2 Lymphocytes % 17.4 D Monocytes % 7.3 Eosinophils % 1.4 Basophils % 0.7 Nucleated RBC % 0 Active Medications Generic Name Dose Route Start Last Admin Trade Name Freq PRN Reason Stop Dose Admin Al Hydroxide/Mg Hydroxide 30 ml 01/14/18 22:06 01/14/18 22:18 Mylanta Oral Suspension - PO 30 ml Q6H PRN Administration DYSPEPSIA Enoxaparin Sodium 60 mg/ 140 mg 01/14/18 22:00 01/16/18 10:49 Enoxaparin Sodium 80 mg SQ 140 mg BID MATTHIAS Administration CBC, BMP 01/16/18 05:30 01/15/18 06:15 ASSESSMENT/PLAN: 32 year olf female with h/o lupus presented to the ED due to SOB and was found to have B/L PE and admitted to ICU for further evaluation . # Pulm -SOB due to B/L PE due to obesity and vs lupus * denies and chest pain , sob has improved * CTA reviewed * start on Lovenox 140 mg PO BID * early ambulation * LE US negative for DVT * DR. Krishnan consulted recommendation appreciated * Factor X and lupus AC pending * Echo cardiogram with no right heart strain , mild pulm HTN , F/U official reading * transfer to med-surg # Elevated trop likely demand ischemia * no EKG changes * Peaked at 0.38....0.19 # * gestational age 12 weeks * Echo with fetus HR 146 * Consult Pillowcase Folder * spoke with Dr mathis over the phone her junior designer from [facility] and update her about the pt. * # FEN * F: no standing fluids * E: monitor BMP * N: regular diet # Proph * DVTS: Lovenox BID # Dispo * transfer to med-surg Visit type - Emergency Visit Emergency Visit: Yes ED Registration Date: 01/14/18 Care time: The patient presented to the Emergency Department on the above date and was hospitalized for further evaluation of their emergent condition. - New Patient This patient is new to me today: Yes Date on this admission: 01/16/18 - Critical Care Critical Care patient: Yes Total Critical Care Time (in minutes): 45 Critical Care Statement: The care of this patient involved high complexity decision making to prevent further life threatening deterioration of the patient 's condition and/or to evaluate & treat vital organ system(s) failure or risk of failure.
[2018-01-16] MEDS: MAG HYDROX/AL HYDROX/SIMETH 30 ML UNIT-DOSE CUP PO PRN (16:10)
[2018-01-16] MEDS ORDERED: POLYETHYLENE GLYCOL 3350 119 GM BTL PO ONE (16:15)
[2018-01-16] MEDS ORDERED: PRENATAL VITAMINS W/ FOLIC ACID TABLET (FP) PO SCH ×2 (16:15→22:00)
--- NOTE | 2018-01-16 17:00 | PN ---
Progress Note (short form) - Note Progress Note: PAtient seen and examined Feels well. Denies any complaints Last Vital Signs Temp Pulse Resp BP Pulse Ox 98 F 82 18 144/80 100 01/16/18 13:00 01/16/18 16:00 01/16/18 16:00 01/16/18 16:00 01/16/18 08:56 Cor: RSR, No murmurs, No gallops Lungs: Clear to P&A Abd: Soft, Normal bowel sounds, No organomegaly Ext:No significant edema Abnormal Lab Results 01/16/18 05:30 WBC 12.5 H Active Medications Generic Name Dose Route Start Last Admin Trade Name Freq PRN Reason Stop Dose Admin Al Hydroxide/Mg Hydroxide 30 ml 01/14/18 22:06 01/16/18 16:10 Mylanta Oral Suspension - PO 30 ml Q6H PRN Administration DYSPEPSIA Enoxaparin Sodium 60 mg/ 140 mg 01/14/18 22:00 01/16/18 10:49 Enoxaparin Sodium 80 mg SQ 140 mg BID MATTHIAS Administration Multivit/Folic Acid/Iron 1 tab 01/16/18 22:00 Vitamins (Sjr) - PO HS MATTHIAS A/P 32 y/o patient, , Extensive bilateral PE in a 12weeks patient. Lovenox 1mg/kg bid--- Pt weighs 144kilos --140mg SC bid Will need to follow up with software quality automation engineer at [facility] and with hematology team there
[2018-01-16] MEDS: SUCRALFATE 1 GM TABLET (FP) PO SCH ×2 (19:13→23:02)
[2018-01-16] MEDS ORDERED: MAG HYDROX/AL HYDROX/SIMETH 30 ML UNIT-DOSE CUP PO PRN (21:38)
[2018-01-16] MEDS ORDERED: ACETAMINOPHEN 325 MG TABLET (FP) PO PRN ×2 (21:56)
[2018-01-16] MEDS ORDERED: ENOXAPARIN SQ SCH (22:00)
--- NOTE | 2018-01-16 22:21 | PN ---
Progress Note, Physician History of Present Illness: Pt transferred to 7th floor from ICU and developed acute lt sided chest pain and SOB once she got into new room wc she states is very hot. Pt is upset and wants to be transferred to [facility] - Current Medication List Current Medications: Active Medications Acetaminophen (Tylenol -) 650 mg PO Q6H PRN PRN Reason: PAIN 1-5 Al Hydroxide/Mg Hydroxide (Mylanta Oral Suspension -) 30 ml PO Q6H PRN PRN Reason: DYSPEPSIA Enoxaparin Sodium 60 mg/ (Enoxaparin Sodium 80 mg) 140 mg SQ BID MATTHIAS Multivit/Folic Acid/Iron ( Vitamins (Sjr) -) 1 tab PO HS MATTHIAS Sucralfate (Carafate -) 1 gm PO TID [facility] Last Admin: 01/16/18 19:13 Dose: Not Given - Objective Vital Signs: Vital Signs Temperature 98 F 01/16/18 13:00 Pulse Rate 74 01/16/18 20:00 Respiratory Rate 20 01/16/18 20:00 Blood Pressure 105/60 01/16/18 20:00 O2 Sat by Pulse Oximetry (%) 100 01/16/18 08:56 Constitutional: Yes: Well Nourished Neck: Yes: WNL, Supple Cardiovascular: Yes: WNL, Regular Rate and Rhythm Respiratory: Yes: Diminished Gastrointestinal: Yes: WNL, Normal Bowel Sounds, Soft, Abdomen, Obese Labs: CBC, BMP 01/16/18 05:30 01/15/18 06:15 INR, PTT INR 1.15 (0.82-1.09) H 01/15/18 06:15 Problem List - Problems (1) Pulmonary emboli Assessment/Plan: Cont lovenox Labs and EKG ordered due to new lt sided chest pain/SOB However pt refused labs and finally agreed to EKG wc showed NSR and no changes Pt was also initially refusing any O2 although she was complaining of SOB Vital signs were normal and O2 sat on room air was 98% [facility] called and accepted pt for transfer Code(s): I26.99 - OTHER PULMONARY EMBOLISM WITHOUT ACUTE COR PULMONALE (2) Elevated troponin I level Assessment/Plan: Due to demand ischemia Code(s): R74.8 - ABNORMAL LEVELS OF OTHER SERUM ENZYMES (3) Assessment/Plan: MENTAL TESTER consult noted Code(s): Z34.90 - ENCNTR FOR SUPRVSN OF NORMAL , UNSP, UNSP TRIMESTER Qualifiers: Weeks of gestation: 12 weeks Qualified Code(s): Z3A.12 - 12 weeks gestation of
[2018-01-17 01:56] VITALS: BP 145/71; PULSE 61; TEMP 98.1
[2018-01-17 14:17] LABS: DRVVT - 36.2 sec (0.0-47.0)
--- NOTE | 2018-01-17 15:03 | EKG ---
Test Reason : Blood Pressure : / mmHG Vent. Rate : 069 BPM Atrial Rate : 069 BPM P-R Int : 132 ms QRS Dur : 084 ms QT Int : 398 ms P-R-T Axes : 045 037 018 degrees QTc Int : 426 ms NORMAL SINUS RHYTHM NORMAL ECG WHEN COMPARED WITH ECG OF 15-JAN-2018 10:48, NO SIGNIFICANT CHANGE WAS FOUND Confirmed by MD Stallings Edward ([id number]) on 01/17/2018 3:03:00 PM Referred By: Confirmed By:Sotero Stallings MD
--- NOTE | 2018-01-19 11:59 | DS ---
Physical Examination Vital Signs: Vital Signs Temperature 98.1 F 01/16/18 22:00 Pulse Rate 61 01/16/18 22:00 Respiratory Rate 22 01/16/18 22:00 Blood Pressure 145/71 01/16/18 22:00 O2 Sat by Pulse Oximetry (%) 100 01/16/18 21:00 Labs: CBC, BMP 01/16/18 05:30 01/15/18 06:15 Discharge Summary Reason For Visit: ELEVATED TROPONIN I LEVEL, SHORTNESS OF BREATH, Condition: Guarded - Instructions Referrals: Norma Bills MD [Primary Care Provider] - Disposition: TRANSFER ACUTE CARE/OTHER HOSP - Home Medications Comprehensive Discharge Medication List: Ambulatory Orders NK [No Known Home Medication] 12/06/17
== END 2018-01-17 01:30 | disposition short-term general hospital (02) | DRG 566 ==
LOC: JER 08:41 → JERBED 17:29 → J4W 19:38 → JICU 20:15 → J7W 01-16 20:43
PROVIDERS: ADMIT Internal Medicine; ATTEND Internal Medicine
DX: O88.211 Thromboembolism in pregnancy, first trimester (principal); Z68.43 Body mass index [BMI] 50.0-59.9, adult; E66.01 Morbid (severe) obesity due to excess calories; O26.891 Other specified pregnancy related conditions, first trimester; I24.8 Other forms of acute ischemic heart disease; O99.211 Obesity complicating pregnancy, first trimester; Z3A.12 12 weeks gestation of pregnancy; K21.9 Gastro-esophageal reflux disease without esophagitis; K29.60 Other gastritis without bleeding; I26.99 Other pulmonary embolism without acute cor pulmonale; L93.0 Discoid lupus erythematosus
CPT/HCPCS: 36415; 71045-TC-FY; 71275-TC; 76801-TC; 80053; 81003; 81015; 82550; 83880; 84484; 85025; 85027; 85260; 85379; 85520; 85610; 85613; 85730; 85732; 86850; 86900; 86901; 87086; 93005; 93010; 93306-TC; 93970-TC; 99284-25